=== PATIENT | male | born 1940 | race Caucasian/White ===

== ENCOUNTER 2022-02-02 00:43 | Emergency (ER) | payer MEDICARE, BC ==
[~2022-02-02] VITALS: Ht 182.9 cm; Wt 95.2 kg
== END 2022-02-02 03:41 | disposition home or self-care (01) ==
LOC: ER 00:43
DX: S00.83XA Contusion of other part of head, initial encounter (principal); S00.01XA Abrasion of scalp, initial encounter; S00.81XA Abrasion of other part of head, initial encounter; M25.572 Pain in left ankle and joints of left foot; W01.198A Fall on same level from slipping, tripping and stumbling with subsequent striking against other object, initial encounter; Y92.828 Other wilderness area as the place of occurrence of the external cause
CPT/HCPCS: 70450